=== PATIENT | female | born 1965 | race Caucasian/White ===

== ENCOUNTER 2016-07-03 21:24 | Emergency (ER) | payer MEDICAID ==
[~2016-07-03] VITALS: Ht 157.5 cm; Wt 71.0 kg
[~2016-07-03 21:24] MED LIST: BACT800T5 PO; HYDR-3535 PO; IMIT100T PO; Muscle relaxer PO; PROM25SU8 PO; SUMA25 PO
[2016-07-03 21:56] VITALS: BP 117/75; PULSE 74; RESP 16; TEMP 98.1; O2SAT 98
[2016-07-03] MEDS ORDERED: IMIT100T PO (22:08)
[2016-07-03] MEDS ORDERED: IMIT25TA PO (22:08)
--- NOTE | 2016-07-03 22:40 | PD ---
HPI . Headache Chief Complaint: Headache Time Seen by Provider: 22:34 Travel History International Travel<30 days: No Contact w/Intl Traveler<30days: No Traveled to known affect area: No History of Present Illness HPI Patient presents complaining with a migraine headache that started this morning. She describes a throbbing left-sided headache. It has been unrelieved by Excedrin. PFSH Past Medical History Arthritis: No Asthma: No Autoimmune Disease: No Heart Rhythm Problems: No Cancer: No Cardiovascular Problems: No High Cholesterol: No Chest Pain: Yes (Intermittent) Congestive Heart Failure: No COPD: No Cerebrovascular Accident: No Diminished Hearing: No Endocrine: No Gastrointestinal Disorders: Yes GERD: No Genitourinary: Yes Headaches: Yes Hiatal Hernia: Yes Hypertension: No Kidney Stones: Yes Musculoskeletal: No Neurologic: Yes Reproductive: Yes (HEAVY PERIODS) Respiratory: No Immunizations Current: Yes Migraines: Yes Myocardial Infarction: No Renal Failure: No Seizures: Yes Sleep Apnea: No Ulcer: Yes Tetanus Vaccination: < 5 Years Influenza Vaccination: No ?: Not LMP: NOW Menopausal: Yes Tubal Ligation: Yes Past Surgical History Abdominal Surgery: Yes (Gastric bypass) AICD: No Appendectomy: Yes Cardiac Surgery: No Ear Surgery: No Endocrine Surgery: No Eye Surgery: No Genitourinary Surgery: No Gynecologic Surgery: Yes (tubal ligation) Oral Surgery: No Pacemaker: No Thoracic Surgery: No Other Surgery: Yes Social History Alcohol Use: No Tobacco Use: No Substance Use: Yes (POT) Allergies-Medications (Allergen,Severity, Reaction): Coded Allergies: No Known Allergies (Verified , 07/03/16) Reported Meds & Prescriptions Reported Meds & Active Scripts Active Reported Imitrex (Sumatriptan Succinate) 100 Mg Tab 100 Mg PO BID PRN If a satisfactory response has not been obtained at 2 hours, a second dose may be administered Imitrex (Sumatriptan Succinate) 25 Mg Tab 25 Mg PO BID PRN If a satisfactory response has not been obtained at 2 hours, a second dose may be administered Review of Systems Except as stated in HPI: all other systems reviewed are Neg General / Constitutional: No: Fever, Chills HENT: Positive: Headaches Physical Exam Narrative GENERAL: Patient is lying on the stretcher with a cool washcloth across her forehead. SKIN: Warm and dry. HEAD: Atraumatic. Normocephalic. She does have some left sided scalp tenderness. EYES: Pupils equal and round. ENT: No nasal bleeding or discharge. Mucous membranes pink and moist. NECK: Trachea midline. Neck is supple. CARDIOVASCULAR: Regular rate and rhythm. RESPIRATORY: No accessory muscle use. MUSCULOSKELETAL: No obvious deformities. No edema. NEUROLOGICAL: Awake and alert. No obvious cranial nerve deficits. Motor grossly within normal limits. Normal speech. PSYCHIATRIC: Appropriate mood and affect; insight and judgment normal. Data Data Last Documented VS Vital Signs Date Time Temp Pulse Resp B/P Pulse Ox O2 Delivery O2 Flow Rate FiO2 07/03/16 22:09 07/03/16 21:56 98.1 74 16 98 Orders Iv Access Insert/Monitor (07/03/16 22:36) Sodium Chloride 0.9% Flush (Ns Flush) (07/03/16 22:45) Prochlorperazine Inj (Compazine Inj) (07/03/16 22:45) Diphenhydramine Inj (Benadryl Inj) (07/03/16 22:45) MDM Medical Decision Making Medical Screen Exam Complete: Yes Emergency Medical Condition: Yes Differential Diagnosis Differential diagnosis of headache includes but is not limited to migraine, muscle contraction headache, brain tumor, brain bleed Narrative Course Patient presents for treatment of migraine. She denies any known drug allergies. Patient refuses IV access. I will give her a shot of Toradol and a Compazine suppository. Diagnosis Primary Impression: Headache Qualified Code: G44.039 - Episodic paroxysmal hemicrania, not intractable Disposition: DISCHARGE HOME Condition: Stable Naina Pacheco MD Jul 03, 2016 22:40
[2016-07-03] MEDS ORDERED: KETOROLAC TROMETHAMINE 60 MG/2 ML (IM) VIAL IM ONE (22:45)
[2016-07-03] MEDS ORDERED: PROCHLORPERAZINE INJ 10 MG/2 ML VIAL IVP ONE (22:45)
[2016-07-03] MEDS ORDERED: PROCHLORPERAZINE 25 MG SUPP RECTAL ONE (22:45)
[2016-07-03] MEDS ORDERED: diphenhydrAMINE HCL 50 MG/ML VIAL IVP ONE (22:45)
[2016-07-03] MEDS ORDERED: SODIUM CHLORIDE 0.9% FLUSH 5 ML FLUSH IVF PRN (22:45)
[2016-07-03 22:51] VITALS: BP 127/64; PULSE 70; RESP 18; O2SAT 96
== END 2016-07-03 23:00 | disposition home or self-care (01) ==
LOC: PHEFT 21:24
DX: G43.909 Migraine, unspecified, not intractable, without status migrainosus (principal); F12.10 Cannabis abuse, uncomplicated
CPT/HCPCS: 96372; 99283; J1885

== ENCOUNTER 2016-07-04 19:35 | Emergency (ER) | payer MEDICAID ==
[~2016-07-04] VITALS: Ht 157.5 cm; Wt 71.0 kg
[~2016-07-04 19:35] MED LIST changes: -BACT800T5 PO; -HYDR-3535 PO; +IMIT25TA PO; -Muscle relaxer PO; -PROM25SU8 PO; -SUMA25 PO
[2016-07-04 19:39] VITALS: BP 146/84; PULSE 70; RESP 19; TEMP 98.3; O2SAT 98
--- NOTE | 2016-07-04 19:55 | PD ---
HPI Chief Complaint: Headache Time Seen by Provider: 19:47 Travel History International Travel<30 days: No Contact w/Intl Traveler<30days: No Traveled to known affect area: No History of Present Illness HPI This 50-year-old female is complaining of migraine headache. She has a long history of migraines. She was in the emergency department last night and got injection of Toradol and Compazine the headache did not resolve and she is continuing to have pain. She has had some vomiting. She says in the past she has Very good results with Imitrex injection and she would like to try. It is a throbbing headache behind her right eye. She is having photophobia. She does have other medical issues. She is being evaluated for irregular vaginal bleeding and is due to have surgery. She is also has a right hip problem that she will have operated on [facility] Past Medical History Arthritis: No Asthma: No Autoimmune Disease: No Heart Rhythm Problems: No Cancer: No Cardiovascular Problems: No High Cholesterol: No Chest Pain: Yes (Intermittent) Congestive Heart Failure: No COPD: No Cerebrovascular Accident: No Diminished Hearing: No Endocrine: No Gastrointestinal Disorders: Yes GERD: No Genitourinary: Yes Headaches: Yes Hiatal Hernia: Yes Hypertension: No Kidney Stones: Yes Musculoskeletal: No Neurologic: Yes Reproductive: Yes (HEAVY PERIODS) Respiratory: No Immunizations Current: Yes Migraines: Yes Myocardial Infarction: No Renal Failure: No Seizures: Yes Sleep Apnea: No Ulcer: Yes ?: Not Menopausal: Yes Tubal Ligation: Yes Past Surgical History Abdominal Surgery: Yes (Gastric bypass) AICD: No Appendectomy: Yes Cardiac Surgery: No Ear Surgery: No Endocrine Surgery: No Eye Surgery: No Genitourinary Surgery: No Gynecologic Surgery: Yes (tubal ligation) Oral Surgery: No Pacemaker: No Thoracic Surgery: No Other Surgery: Yes Social History Alcohol Use: No Tobacco Use: No Substance Use: Yes (POT) Allergies-Medications (Allergen,Severity, Reaction): Coded Allergies: Zofran (Verified Adverse Reaction, Mild, RESTLESS , 07/04/16) Reported Meds & Prescriptions Reported Meds & Active Scripts Active Reported Imitrex (Sumatriptan Succinate) 100 Mg Tab 100 Mg PO BID PRN If a satisfactory response has not been obtained at 2 hours, a second dose may be administered Imitrex (Sumatriptan Succinate) 25 Mg Tab 25 Mg PO BID PRN If a satisfactory response has not been obtained at 2 hours, a second dose may be administered Review of Systems General / Constitutional: No: Fever, Chills Eyes: Positive: Photophobia, No: Diploplia HENT: No: Headaches, Vertigo Cardiovascular: No: Chest Pain or Discomfort, Palpitations Respiratory: No: Cough, Shortness of Breath Gastrointestinal: Positive: Nausea, Vomiting Genitourinary: No: Urgency, Frequency Musculoskeletal: No: Myalgias Neurologic: No: Weakness Hematologic/Lymphatic: No: Easy Bruising Physical Exam Narrative GENERAL: Well-developed female SKIN: Warm and dry. HEAD: Atraumatic. Normocephalic. EYES: Pupils equal and round. No scleral icterus. No injection or drainage. ENT: No nasal bleeding or discharge. Mucous membranes pink and moist. NECK: Trachea midline. No JVD. CARDIOVASCULAR: Regular rate and rhythm. No murmur appreciated. RESPIRATORY: No accessory muscle use. Clear to auscultation. Breath sounds equal bilaterally. GASTROINTESTINAL: Abdomen soft, non-tender, nondistended. Hepatic and splenic margins not palpable. MUSCULOSKELETAL: No obvious deformities. No clubbing. No cyanosis. No edema. NEUROLOGICAL: Awake and alert. No obvious cranial nerve deficits. Motor grossly within normal limits. Normal speech. PSYCHIATRIC: Appropriate mood and affect; insight and judgment normal. Data Data Last Documented VS Vital Signs Date Time Temp Pulse Resp B/P Pulse Ox O2 Delivery O2 Flow Rate FiO2 07/04/16 20:54 57 16 133/73 99 Room Air 07/04/16 19:39 98.3 Orders Sumatriptan Inj (Imitrex Inj) (07/04/16 20:00) [facility] Medical Decision Making Medical Screen Exam Complete: Yes Emergency Medical Condition: Yes Medical Record Reviewed: Yes Differential Diagnosis Differential includes migraine headache, tension headache Narrative Course Patient is very particular about treatment she wants. She does not want IV established. She says she does not want narcotics. She says that Imitrex has helped with the past. I gave 6 mg of Imitrex and she had some improvement. She is having residual headache Toradol. Diagnosis Primary Impression: Migraine headache Qualified Code: G43.909 - Migraine without status migrainosus, not intractable , unspecified migraine type Disposition: DISCHARGE HOME Condition: Stable Johnson Dejesus MD Jul 04, 2016 19:55
[2016-07-04] MEDS ORDERED: SUMAtriptan INJ 6 MG/0.5 ML VIAL SQ ONE (20:00)
[2016-07-04 20:54] VITALS: BP 133/73; PULSE 57; RESP 16; O2SAT 99
[2016-07-04] MEDS ORDERED: KETOROLAC TROMETHAMINE 60 MG/2 ML (IM) VIAL IM ONE (21:15)
== END 2016-07-04 22:16 | disposition home or self-care (01) ==
LOC: PHED 19:35
DX: G43.909 Migraine, unspecified, not intractable, without status migrainosus (principal); R11.10 Vomiting, unspecified; N93.9 Abnormal uterine and vaginal bleeding, unspecified; Z87.19 Personal history of other diseases of the digestive system; Z87.448 Personal history of other diseases of urinary system; Z87.442 Personal history of urinary calculi; Z86.69 Personal history of other diseases of the nervous system and sense organs; Z87.42 Personal history of other diseases of the female genital tract
CPT/HCPCS: 96372; 99283; J1885; J3030

== ENCOUNTER 2016-07-12 09:26 | Emergency (ER) | payer MEDICAID ==
[~2016-07-12] VITALS: Ht 157.5 cm; Wt 71.0 kg
[2016-07-12 09:31] VITALS: BP 143/83; PULSE 73; RESP 16; TEMP 98.2; O2SAT 100
[2016-07-12] MEDS ORDERED: SUMAtriptan INJ 6 MG/0.5 ML VIAL SQ ONE (10:30)
[2016-07-12] MEDS ORDERED: IMIT100T PO (11:07)
--- NOTE | 2016-07-12 11:07 | PD ---
HPI Chief Complaint: Headache Time Seen by Provider: 10:09 Travel History International Travel<30 days: No Contact w/Intl Traveler<30days: No Traveled to known affect area: No History of Present Illness HPI Patient 51-year-old female presents today with a typical migraine the right side of her head. Patient states that she's been having these on and off for some time. States she also has a history of vaginal bleeding for the past 9 months and has history of fibroids was recommended to have a hysterectomy but her providers have left practice and she is trying to get established with their physicians. She has an appointment with a new PCP at the end of July. Patient admits that she is here because her migraine is no worse than normal but she has run out of her Imitrex and requests a prescription to help get her to her next appointment. States there is nothing alarming or concerning about this migraine and respect her previous migraines. She also denies any hypovolemic symptoms such as dizziness or vertigo or presyncopal symptoms. PFSH Past Medical History Arthritis: No Asthma: No Autoimmune Disease: No Heart Rhythm Problems: No Cancer: No Cardiovascular Problems: No High Cholesterol: Yes Chest Pain: Yes (Intermittent) Congestive Heart Failure: No COPD: No Cerebrovascular Accident: No Diminished Hearing: No Endocrine: No Gastrointestinal Disorders: Yes GERD: Yes Genitourinary: Yes Headaches: Yes Hiatal Hernia: Yes Hypertension: No Kidney Stones: Yes Musculoskeletal: No Neurologic: Yes Reproductive: Yes (HEAVY PERIODS, fibroids) Respiratory: No Immunizations Current: Yes Migraines: Yes Myocardial Infarction: No Renal Failure: No Seizures: Yes Sleep Apnea: No Ulcer: Yes Tetanus Vaccination: < 5 Years Influenza Vaccination: No ?: Not LMP: 07/10/16 Menopausal: Yes : 5 Para: 5 Ovarian Cysts: Yes Tubal Ligation: Yes Past Surgical History Abdominal Surgery: Yes (Gastric bypass) AICD: No Appendectomy: Yes Cardiac Surgery: No Section: Yes (x1) Ear Surgery: No Endocrine Surgery: No Eye Surgery: No Genitourinary Surgery: No Gynecologic Surgery: Yes (tubal ligation) Oral Surgery: No Pacemaker: No Thoracic Surgery: No Other Surgery: Yes (GASTRIC BYPASS) Social History Alcohol Use: No Tobacco Use: No Substance Use: No Allergies-Medications (Allergen,Severity, Reaction): Coded Allergies: Zofran (Verified Adverse Reaction, Mild, RESTLESS , 07/12/16) Reported Meds & Prescriptions Reported Meds & Active Scripts Active Imitrex (Sumatriptan Succinate) 100 Mg Tab 100 Mg PO ONCE PRN If a satisfactory response has not been obtained at 2 hours, a second dose may be administered Review of Systems Except as stated in HPI: all other systems reviewed are Neg Physical Exam Narrative GENERAL: WD/WN in nad. Appears well. SKIN: Warm and dry. HEAD: Atraumatic. Normocephalic. EYES: Pupils equal and round. No scleral icterus. No injection or drainage. ENT: No nasal bleeding or discharge. Mucous membranes pink and moist. NECK: Trachea midline. No JVD. CARDIOVASCULAR: Regular rate and rhythm. RESPIRATORY: No accessory muscle use. Clear to auscultation. Breath sounds equal bilaterally. GASTROINTESTINAL: Abdomen soft, non-tender, nondistended. Hepatic and splenic margins not palpable. MUSCULOSKELETAL: Extremities without clubbing, cyanosis, or edema. No obvious deformities. NEUROLOGICAL: Awake and alert. No obvious cranial nerve deficits. Motor grossly within normal limits. Five out of 5 muscle strength in the arms and legs. Normal speech. PSYCHIATRIC: Appropriate mood and affect; insight and judgment normal. Data Data Last Documented VS Vital Signs Date Time Temp Pulse Resp B/P Pulse Ox O2 Delivery O2 Flow Rate FiO2 07/12/16 11:30 70 16 142/75 99 07/12/16 10:20 Room Air 07/12/16 09:31 98.2 Orders Sumatriptan Inj (Imitrex Inj) (07/12/16 10:30) MDM Medical Decision Making Medical Screen Exam Complete: Yes Emergency Medical Condition: Yes Differential Diagnosis Recurrent migraine, cluster, tension headache. Narrative Course Patient appears well and in nad. No nuchal s/s. No red flag s/s for more malignant cause of headache. Imitrex given IM and headache resolved. Discussed need for follow up with PCP and return to ed criteria. Diagnosis Primary Impression: Migraine headache Qualified Code: G43.909 - Migraine without status migrainosus, not intractable , unspecified migraine type Med/Other Pt SpecificInfo: Prescription(s) given Scripts Sumatriptan (Imitrex)100 Mg [id number] Mg PO ONCE PRN (MIGRAINE HEADACHE) #15 TAB Ref 0 If a satisfactory response has not been obtained at 2 hours, a second dose may be administered Prov:Thom Willson MD 07/12/16 Disposition: 01 DISCHARGE HOME Condition: Stable Thom Willson MD Jul 12, 2016 11:07
[2016-07-12 11:30] VITALS: BP 142/75; RESP 16
== END 2016-07-12 11:32 | disposition home or self-care (01) ==
LOC: PHED 09:26
DX: G43.909 Migraine, unspecified, not intractable, without status migrainosus (principal); N93.9 Abnormal uterine and vaginal bleeding, unspecified; E78.00 Pure hypercholesterolemia, unspecified; Z87.42 Personal history of other diseases of the female genital tract; Z87.19 Personal history of other diseases of the digestive system; Z87.448 Personal history of other diseases of urinary system; Z87.442 Personal history of urinary calculi; Z86.69 Personal history of other diseases of the nervous system and sense organs
CPT/HCPCS: 96372; 99283; J3030

== ENCOUNTER 2016-10-28 07:49 | Emergency (ER) | payer MEDICAID ==
[~2016-10-28] VITALS: Ht 154.9 cm; Wt 71.1 kg
[~2016-10-28 07:49] MED LIST changes: -IMIT25TA PO
[2016-10-28 07:52] VITALS: BP 143/93; PULSE 74; RESP 16; TEMP 97.4; O2SAT 98
[2016-10-28] MEDS ORDERED: IMIT100T PO ×2 (08:01→09:06)
--- NOTE | 2016-10-28 08:02 | PD ---
HPI Chief Complaint: Headache Time Seen by Provider: 08:02 Travel History International Travel<30 days: No Contact w/Intl Traveler<30days: No Traveled to known affect area: No History of Present Illness HPI 51-year-old female came to the emergency room with history of headache that started yesterday. Patient has history of migraines. She usually uses Imitrex but has been out of her Imitrex. She has been in this emergency room multiple times for headache as per her own admission. This headache is no different than her usual. She is extremely sensitive to the light and that noises since it makes her headache worse. Some nausea associated but no vomiting. Vital signs were within acceptable limits. No history of fever or chills. No history of neck stiffness. [facility] Past Medical History Narrative Medical List of her past medical, surgical, social and family history was reviewed from the nursing note. Arthritis: No Asthma: No Autoimmune Disease: No Heart Rhythm Problems: No Cancer: No Cardiovascular Problems: No High Cholesterol: Yes Chest Pain: Yes (Intermittent) Congestive Heart Failure: No COPD: No Cerebrovascular Accident: No Diabetes: No Diminished Hearing: No Endocrine: No Gastrointestinal Disorders: No GERD: Yes Genitourinary: Yes Headaches: Yes Hiatal Hernia: Yes Hypertension: No Kidney Stones: Yes Musculoskeletal: No Neurologic: Yes Reproductive: Yes (HEAVY PERIODS, fibroids) Respiratory: No Immunizations Current: Yes Migraines: Yes Myocardial Infarction: No Renal Failure: No Seizures: Yes Sleep Apnea: No Ulcer: Yes Tetanus Vaccination: Unknown ?: Not Menopausal: Yes : 5 Para: 5 Ovarian Cysts: Yes Tubal Ligation: Yes Past Surgical History Abdominal Surgery: Yes (Gastric bypass) AICD: No Appendectomy: Yes Cardiac Surgery: No Section: Yes (x1) Ear Surgery: No Endocrine Surgery: No Eye Surgery: No Genitourinary Surgery: No Gynecologic Surgery: Yes (tubal ligation) Neurologic Surgery: No Oral Surgery: No Pacemaker: No Thoracic Surgery: No Other Surgery: Yes (GASTRIC BYPASS) Social History Alcohol Use: No Tobacco Use: No Substance Use: No Allergies-Medications (Allergen,Severity, Reaction): Coded Allergies: Zofran (Verified Adverse Reaction, Mild, RESTLESS , 10/28/16) Comments List of her allergies reviewed from the nursing note. Reported Meds & Prescriptions Reported Meds & Active Scripts Active Imitrex (Sumatriptan Succinate) 100 Mg Tab 100 Mg PO ONCE PRN If a satisfactory response has not been obtained at 2 hours, a second dose may be administered Reported Imitrex (Sumatriptan Succinate) 100 Mg Tab 100 Mg PO ONCE PRN If a satisfactory response has not been obtained at 2 hours, a second dose may be administered Narrative Medication List of her home medications reviewed from the nursing note. Review of Systems Except as stated in HPI: all other systems reviewed are Neg Physical Exam Narrative GENERAL: Awake, alert, moderate distress SKIN: Focused skin assessment warm/dry. HEAD: Atraumatic. Normocephalic. EYES: Pupils equal and round. No scleral icterus. No injection or drainage. ENT: No nasal bleeding or discharge. Mucous membranes pink and moist. NECK: Trachea midline. No JVD. CARDIOVASCULAR: Regular rate and rhythm. No murmur appreciated. RESPIRATORY: No accessory muscle use. Clear to auscultation. Breath sounds equal bilaterally. GASTROINTESTINAL: Abdomen soft, non-tender, nondistended. Hepatic and splenic margins not palpable. MUSCULOSKELETAL: No obvious deformities. No clubbing. No cyanosis. No edema. NEUROLOGICAL: Awake and alert. No obvious cranial nerve deficits. Motor grossly within normal limits. Normal speech. PSYCHIATRIC: Appropriate mood and affect; insight and judgment normal. Data Data Last Documented VS Vital Signs Date Time Temp Pulse Resp B/P Pulse Ox O2 Delivery O2 Flow Rate FiO2 10/28/16 09:31 64 16 128/74 99 10/28/16 07:56 Room Air 10/28/16 07:52 97.4 Orders Prochlorperazine Inj (Compazine Inj) (10/28/16 08:15) Sumatriptan Inj (Imitrex Inj) (10/28/16 09:15) [facility] Medical Decision Making Medical Screen Exam Complete: Yes Emergency Medical Condition: Yes Medical Record Reviewed: Yes Differential Diagnosis Status migrainous, cluster headache, headache NOS Narrative Course 8:49 AM patient refused to get an IV and IV fluid. I have ordered IM Compazine which she has received. I'll reassess her in a bit. 9:03 AM I just reassessed the patient. It's almost been an hour since she received her IM Compazine. She says her headache is only a little bit better. She has asked to get a shot of Imitrex since she says every time she gets that in the past it has worked like magic. I have ordered the Imitrex in spite of the fact that the headache has been there for 6 hours now. Patient wants to get a prescription for Imitrex when she goes home. I will discharge her home. Procedures EKG Prior to Arrival: No Diagnosis Primary Impression: Status migrainosus Referrals: Primary Care Physician 2 days Additional Instructions: Please return to the ER if the condition worsens or any other new concerns. Otherwise follow-up with your primary care. Get the medication prescription filled and take it just when the headache starts in order to get the best affect. Med/Other Pt SpecificInfo: Prescription(s) given Scripts Sumatriptan (Imitrex)100 Mg [id number] Mg PO ONCE PRN (MIGRAINE HEADACHE) #15 TAB Ref 0 If a satisfactory response has not been obtained at 2 hours, a second dose may be administered Prov:Mo Pedraza MD 10/28/16 Disposition: 01 DISCHARGE HOME Condition: Stable Mo Pedraza MD October 28, 2016 08:02
[2016-10-28] MEDS ORDERED: PROCHLORPERAZINE INJ 10 MG/2 ML VIAL IM ONE (08:15)
[2016-10-28] MEDS ORDERED: SUMAtriptan INJ 6 MG/0.5 ML VIAL SQ ONE (09:15)
[2016-10-28 09:31] VITALS: BP 128/74
== END 2016-10-28 09:37 | disposition home or self-care (01) ==
LOC: PHED 07:49
DX: G43.901 Migraine, unspecified, not intractable, with status migrainosus (principal); I10 Essential (primary) hypertension
CPT/HCPCS: 96372; 99283; J0780; J3030

== ENCOUNTER 2017-08-12 09:48 | Emergency (ER) | payer MEDICAID ==
[~2017-08-12] VITALS: Ht 160 cm; Wt 74.0 kg
[2017-08-12 09:53] VITALS: BP 176/79; PULSE 98; RESP 16; TEMP 98; O2SAT 96
[2017-08-12] MEDS ORDERED: SODIUM CHLOR 0.9% 1000 ML INJ 1,000 ML IV ONE (10:03)
[2017-08-12 10:13] VITALS: O2SAT 98
[2017-08-12] MEDS ORDERED: PROCHLORPERAZINE INJ 10 MG/2 ML VIAL IVP ONE (10:15)
[2017-08-12] MEDS ORDERED: SODIUM CHLORIDE 0.9% FLUSH 10 ML FLUSH IVF PRN (10:15)
[2017-08-12] MEDS ORDERED: diphenhydrAMINE HCL 50 MG/ML VIAL IVP ONE (10:15)
[2017-08-12 10:19] LABS: AUTOMATED NEUTROPHIL # 6.7 TH/MM3 (1.8-7.7); BASOPHIL % 0.2 % (0.0-2.0); EOSINOPHIL # 0.1 TH/MM3 (0-0.4); EOSINOPHIL % 0.9 % (0.0-4.0); HEMATOCRIT 36.1 % (35.0-46.0); LYMPH % 13.9 % (9.0-44.0); LYMPHOCYTE # 1.2 TH/MM3 (1.0-4.8); MEAN CELL VOLUME 79.8 FL (80.0-100.0); MEAN CORPUSCULAR HEMOGLOBIN 26.4 PG (27.0-34.0); MEAN CORPUSCULAR HGB CONC 33.1 % (32.0-36.0); MEAN PLATELET VOLUME 8.5 FL (7.0-11.0); MONO % 5.5 % (0.0-8.0); MONOCYTE # 0.5 TH/MM3 (0-0.9); NEUT % 79.5 % (16.0-70.0); PLATELET COUNT 283 TH/MM3 (150-450); RED BLOOD COUNT 4.53 MIL/MM3 (4.00-5.30); RED CELL DISTRIBUTION WIDTH 16.4 % (11.6-17.2); WHITE BLOOD COUNT 8.5 TH/MM3 (4.0-11.0)
[2017-08-12 10:34] LABS: CHLORIDE 109 MEQ/L (98-107); SODIUM (NA) 139 MEQ/L (136-145)
--- NOTE | 2017-08-12 10:35 | RADRPT ---
EXAM DATE/TIME: 08/12/2017 10:26 [place] COMPARISON: CT BRAIN W/O CONTRAST, June 01, 2015, 1:57. INDICATIONS : Cephalgia. RADIATION DOSE: 55.29 CTDIvol (mGy) MEDICAL HISTORY : Seizures. Migraines. SURGICAL HISTORY : Appendectomy. Tubal ligation.Gastric bypass. ENCOUNTER: Initial ACUITY: 1 day PAIN SCALE: 5/10 LOCATION: cranial TECHNIQUE: Multiple contiguous axial images were obtained of the head. Using automated exposure control and adj ustment of the mA and/or kV according to patient size, radiation dose was kept as low as reasonably a chievable to obtain optimal diagnostic quality images. DICOM format image data is available electro nically for review and comparison. FINDINGS: CEREBRUM: The ventricles are normal for age. No evidence of midline shift, mass lesion, hemorrhage or acute in farction. No extra-axial fluid collections are seen. POSTERIOR FOSSA: The cerebellum and brainstem are intact. The 4th ventricle is midline. The cerebellopontine angle i s unremarkable. EXTRACRANIAL: The visualized portion of the orbits is intact. SKULL: The calvaria is intact. No evidence of skull fracture. CONCLUSION: Normal examination. Omar Leggett MD on August 12, 2017 at 10:34 Board Certified Radiologist. This report was verified electronically.
[2017-08-12 10:37] LABS: INTERNATIONAL NORMALIZED RATIO 1.1 RATIO; PROTHROMBIN TIME - PATIENT 11.6 SEC (9.8-11.6)
[2017-08-12 10:39] LABS: BICARBONATE 21.6 MEQ/L (21.0-32.0); BLOOD UREA NITROGEN 17 MG/DL (7-18); GLUCOSE,RANDOM 103 MG/DL (74-106)
[2017-08-12 10:42] LABS: ALT (GPT) 13 U/L (10-53); AST (GOT) 16 U/L (15-37); CREATININE 0.92 MG/DL (0.50-1.00); GLOMERULAR FILTRATION RATE 65 ML/MIN (>89)
[2017-08-12 10:43] LABS: TOTAL BILIRUBIN ADULT 0.3 MG/DL (0.2-1.0)
[2017-08-12 10:45] LABS: ALKALINE PHOSPHATASE 73 U/L (45-117)
[2017-08-12 11:23] VITALS: BP 115/66; PULSE 71; RESP 16; O2SAT 97
--- NOTE | 2017-08-12 11:47 | PD ---
HPI Chief Complaint: Headache Time Seen by Provider: 09:56 Travel History International Travel<30 days: No Contact w/Intl Traveler<30days: No Traveled to known affect area: No History of Present Illness HPI This is a 52-year-old female with a history of migraines who presents for headache and change in hearing. She states that yesterday morning, she had gradual onset of right frontal headache. She states that it feels like her prior migraines. It came on gradually and did not reach maximum intensity rapidly. This is not the worst headache of her life. No associated focal weakness, numbness, tingling. No change in vision. She states that it feels like her hearing is muffled. She can hear but it feels like voices are far away. It seems to be symmetric in each ear. She states that it feels like her ears "need to pop." She denies recent fever, chills, cough, congestion, vomiting, diarrhea. No rash, neck pain or stiffness. No ear pain. Symptoms are mild in severity. Onset gradual. No alleviating or aggravating factors. She took 2 Excedrin this morning. PFSH Past Medical History Arthritis: No Asthma: No Autoimmune Disease: No Heart Rhythm Problems: No Cancer: No Cardiovascular Problems: No High Cholesterol: Yes Chest Pain: Yes (Intermittent) Congestive Heart Failure: No COPD: No Cerebrovascular Accident: No Diabetes: No Diminished Hearing: No Endocrine: No Gastrointestinal Disorders: No GERD: Yes Genitourinary: Yes Headaches: Yes Hiatal Hernia: Yes Hypertension: No Kidney Stones: Yes Musculoskeletal: No Neurologic: Yes Reproductive: Yes (HEAVY PERIODS, fibroids) Respiratory: No Immunizations Current: Yes Migraines: Yes Myocardial Infarction: No Renal Failure: No Seizures: Yes Sleep Apnea: No Ulcer: Yes Tetanus Vaccination: Unknown ?: Not Menopausal: Yes : 5 Para: 5 Ovarian Cysts: Yes Tubal Ligation: Yes Past Surgical History Abdominal Surgery: Yes (Gastric bypass) AICD: No Appendectomy: Yes Cardiac Surgery: No Section: Yes (x1) Ear Surgery: No Endocrine Surgery: No Eye Surgery: No Genitourinary Surgery: No Gynecologic Surgery: Yes (tubal ligation) Neurologic Surgery: No Oral Surgery: No Pacemaker: No Thoracic Surgery: No Other Surgery: Yes (GASTRIC BYPASS) Social History Alcohol Use: No Tobacco Use: No Substance Use: No Allergies-Medications (Allergen,Severity, Reaction): Coded Allergies: ondansetron (Unverified Adverse Reaction, Mild, RESTLESS , 08/12/17) Reported Meds & Prescriptions Reported Meds & Active Scripts Active Prochlorperazine Maleate 10 Mg Tab 10 Mg PO Q6H PRN TAKE WITH BENADRYL Reported Imitrex (Sumatriptan Succinate) 100 Mg Tab 100 Mg PO ONCE PRN If a satisfactory response has not been obtained at 2 hours, a second dose may be administered Review of Systems Except as stated in HPI: all other systems reviewed are Neg Physical Exam Narrative GENERAL: Alert, well nourished, well appearing patient resting on the bed in no acute distress. Vital Signs reviewed SKIN: Focused skin assessment warm/dry. HEAD: Atraumatic. Normocephalic. EYES: Pupils equal and round. No scleral icterus. No injection or drainage. No photophobia ENT: No nasal bleeding or discharge. Mucous membranes pink and moist. TMs are clear bilaterally. No tenderness over the mastoids. Posterior oropharynx with no erythema, edema, exudate. Uvula is midline. Hearing does not lateralize with humming. NECK: Trachea midline. No JVD. Spontaneous, painless full range of motion with no meningismus CARDIOVASCULAR: Regular rate and rhythm. No murmur appreciated. Extremities warm and well perfused with bounding peripheral pulses RESPIRATORY: No accessory muscle use. Clear to auscultation. Breath sounds equal bilaterally. Breathing easily and speaking in full sentences GASTROINTESTINAL: Abdomen soft, non-tender, nondistended. Normal bowel sounds. No rigid, rebound, guarding MUSCULOSKELETAL: No obvious deformities. No clubbing. No cyanosis. No edema. Compartments are soft NEUROLOGICAL: Awake and alert. No obvious cranial nerve deficits other than subjectively diminished hearing symmetric bilaterally. Patient is able to converse without difficulty in normal conversational tone even when I am facing away from her she can hear me and answer appropriately.. Motor grossly within normal limits. Normal speech. Sensation intact. Normal gait. No pronator drift. Normal finger to nose PSYCHIATRIC: Appropriate mood and affect; insight and judgment normal. Data Data Last Documented VS Vital Signs Date Time Temp Pulse Resp B/P (MAP) Pulse Ox O2 Delivery O2 Flow Rate FiO2 08/12/17 11:23 71 16 115/66 (82) 97 Room Air 08/12/17 09:53 98.0 Orders Orders Complete Blood Count With Diff (08/12/17 10:03) Comprehensive Metabolic Panel (08/12/17 10:03) Prothrombin Time / Inr (Pt) (08/12/17 10:03) Act Partial Throm Time (Ptt) (08/12/17 10:03) Ct Brain W/O Iv Contrast(Rout) (08/12/17 10:03) Ecg Monitoring (08/12/17 10:03) Iv Access Insert/Monitor (08/12/17 10:03) Oximetry (08/12/17 10:03) Sodium Chloride 0.9% Flush (Ns Flush) (08/12/17 10:15) Sodium Chlor 0.9% 1000 Ml Inj (Ns 1000 M (08/12/17 10:03) Prochlorperazine Inj (Compazine Inj) (08/12/17 10:15) Diphenhydramine Inj (Benadryl Inj) (08/12/17 10:15) Labs Laboratory Tests Test 08/12/17 10:13 White Blood Count 8.5 TH/MM3 Red Blood Count 4.53 MIL/MM3 Hemoglobin 12.0 GM/DL Hematocrit 36.1 % Mean Corpuscular Volume 79.8 FL Mean Corpuscular Hemoglobin 26.4 PG Mean Corpuscular Hemoglobin Concent 33.1 % Red Cell Distribution Width 16.4 % Platelet Count 283 TH/MM3 Mean Platelet Volume 8.5 FL Neutrophils (%) (Auto) 79.5 % Lymphocytes (%) (Auto) 13.9 % Monocytes (%) (Auto) 5.5 % Eosinophils (%) (Auto) 0.9 % Basophils (%) (Auto) 0.2 % Neutrophils # (Auto) 6.7 TH/MM3 Lymphocytes # (Auto) 1.2 TH/MM3 Monocytes # (Auto) 0.5 TH/MM3 Eosinophils # (Auto) 0.1 TH/MM3 Basophils # (Auto) 0.0 TH/MM3 CBC Comment DIFF FINAL Differential Comment Prothrombin Time 11.6 SEC Prothromb Time International Ratio 1.1 RATIO Activated Partial Thromboplast Time 25.4 SEC Blood Urea Nitrogen 17 MG/DL Creatinine 0.92 MG/DL Random Glucose 103 MG/DL Total Protein 8.0 GM/DL Albumin 4.0 GM/DL Calcium Level 8.0 MG/DL Alkaline Phosphatase 73 U/L Aspartate Amino Transf (AST/SGOT) 16 U/L Alanine Aminotransferase (ALT/SGPT) 13 U/L Total Bilirubin 0.3 MG/DL Sodium Level 139 MEQ/L Potassium Level 3.2 MEQ/L Chloride Level 109 MEQ/L Carbon Dioxide Level 21.6 MEQ/L Anion Gap 8 MEQ/L Estimat Glomerular Filtration Rate 65 ML/MIN MDM Medical Decision Making Medical Screen Exam Complete: Yes Emergency Medical Condition: Yes Medical Record Reviewed: Yes Interpretation(s) Laboratory Tests Test 08/12/17 10:13 White Blood Count 8.5 TH/MM3 Red Blood Count 4.53 MIL/MM3 Hemoglobin 12.0 GM/DL Hematocrit 36.1 % Mean Corpuscular Volume 79.8 FL Mean Corpuscular Hemoglobin 26.4 PG Mean Corpuscular Hemoglobin Concent 33.1 % Red Cell Distribution Width 16.4 % Platelet Count 283 TH/MM3 Mean Platelet Volume 8.5 FL Neutrophils (%) (Auto) 79.5 % Lymphocytes (%) (Auto) 13.9 % Monocytes (%) (Auto) 5.5 % Eosinophils (%) (Auto) 0.9 % Basophils (%) (Auto) 0.2 % Neutrophils # (Auto) 6.7 TH/MM3 Lymphocytes # (Auto) 1.2 TH/MM3 Monocytes # (Auto) 0.5 TH/MM3 Eosinophils # (Auto) 0.1 TH/MM3 Basophils # (Auto) 0.0 TH/MM3 CBC Comment DIFF FINAL Differential Comment Prothrombin Time 11.6 SEC Prothromb Time International Ratio 1.1 RATIO Activated Partial Thromboplast Time 25.4 SEC Blood Urea Nitrogen 17 MG/DL Creatinine 0.92 MG/DL Random Glucose 103 MG/DL Total Protein 8.0 GM/DL Albumin 4.0 GM/DL Calcium Level 8.0 MG/DL Alkaline Phosphatase 73 U/L Aspartate Amino Transf (AST/SGOT) 16 U/L Alanine Aminotransferase (ALT/SGPT) 13 U/L Total Bilirubin 0.3 MG/DL Sodium Level 139 MEQ/L Potassium Level 3.2 MEQ/L Chloride Level 109 MEQ/L Carbon Dioxide Level 21.6 MEQ/L Anion Gap 8 MEQ/L Estimat Glomerular Filtration Rate 65 ML/MIN Last [address] 08/12/17 1003 Signed Impressions: Service Date/Time: [place], August 12, 2017 10:26 - CONCLUSION: Normal examination. Omar Leggett MD Differential Diagnosis Complex migraine, cerumen impaction, hearing loss, intracranial mass, sinus congestion, CN deficit Narrative Course IV access was established. Labs, imaging were performed. Patient was given IV fluids, Benadryl and Compazine with excellent result. Upon reexamination at 11: 30 AM: She is resting comfortably on the bed. She states that her headache is markedly improved and her hearing appears to be improved as well. I spoke with Dr. Dupree regarding the patient's symptoms, history, lab and imaging findings. She states that patient can be discharged with continued outpatient workup. I reviewed this plan with the patient who is very eager to be discharged. She states that she is feeling much better. She does not want further testing in the emergency department. Patient understands the importance of close outpatient follow-up. She understands she may require further testing and treatment as an outpatient. She understands strict return indications. She is comfortable with this plan and eager to go home. Diagnosis Primary Impression: Migraine headache Qualified Codes: G43.009 - Migraine without aura, not intractable, without status migrainosus Referrals: Nava Dupree MD Primary Care Physician 3 days Patient Instructions: General Instructions, Migraine Headache (DC) Additional Instructions: Use Compazine with Benadryl as needed for headache. Do not take aspirin containing medications for 2 days. Follow up with primary physician in 3 days for recheck. Call today to make an appointment. Follow-up with neurologist as needed. You may require further testing and treatment as an outpatient. Med/Other Pt SpecificInfo: Prescription(s) given Scripts Prochlorperazine Maleate (Prochlorperazine Maleate) 10 Mg Tab 10 MG PO Q6H Y for MIGRAINE HEADACHE, #12 TAB 0 Refills TAKE WITH BENADRYL Prov: Tali Michel MD 08/12/17 Disposition: 01 DISCHARGE HOME Condition: Stable Tali Michel MD Aug 12, 2017 11:47
[2017-08-12] MEDS ORDERED: PROC10TA PO (12:56)
[2017-08-12 13:15] VITALS: BP 119/64
== END 2017-08-12 13:18 ==
LOC: PHED 09:48
DX: G43.009 Migraine without aura, not intractable, without status migrainosus (principal)
CPT/HCPCS: 70450; 80053; 85025; 85610; 85730; 96361; 96374; 96375; 99284; J0780; J1200; J7030

== ENCOUNTER 2017-12-25 00:06 | Inpatient (IN) ==
[2017-12-25 01:38] LABS: Bilirubin,Urine Negative (Negative); Clarity,Urine Cloudy (Clear); Color,Urine Yellow (Yellw/Straw); Glucose,Urine (UA) Negative (Negative); Leukocyte Esterase,Urine Moderate (Negative); Nitrite,Urine Negative (Negative); PH,Urine 6.5 (5.0-8.5)
[2017-12-25 01:43] LABS: WBC,Urine 51-189 /hpf (0-5)
[2017-12-25 01:44] LABS: Bacteria,Urine Moderate /hpf; Squamous Epithelial Cell,Urine 0-5 /hpf (0-5)
[2017-12-25] MEDS ORDERED: Ketorolac Inj 30 MG/ML (IVP) Vial IV.PUSH ONE (02:28)
[2017-12-25] MEDS ORDERED: Sod Chloride 0.9% Inj 1,000 ML IV.SIG ONE ×2 (02:28→02:31)
[2017-12-25] MEDS ORDERED: Acetaminophen 500 MG Tablet PO ONE (02:28)
--- NOTE | 2017-12-25 02:37 | ED ---
HPI General Chief complaint: Headache Stated complaint: Migraine x 1p today Time Seen by Provider: 12/25/17 02:27 History of Present Illness HPI narrative: 52-year-old female presents to the emergency department for complaint of headache. Patient has history of migraines. Patient states her typical migraine began at 1 PM today. Patient states she usually uses Imitrex but without pemetrexed took Tylenol with minimal effect. Patient states she took a nap and when she awakened she still had her headaches decided to come to the emergency room for evaluation. No visual disturbance no altered mentation no upper extremity lower extremity numbness tingling or weakness no chest pain no shortness of breath no nausea no vomiting no generalized weakness and states no other complaints. Upon arrival to the emergency department patient was noted to have fever and since that time she has felt very flushed hot and states she just cannot get comfortable and feels very agitated. Patient did not take any medications prior to arrival to the emergency department reportedly. Patient states she cannot get cool and then she becomes hot. Patient states she has had no visual disturbance no sore throat no sinus pressure drainage no earache no neck pain no neck stiffness no chest pain no pleuritic chest pain no shortness of breath no wheezing no cough no congestion no nausea no vomiting no abdominal pain no diarrhea no dysuria frequency urgency no flank pain no dysuria no vaginal discharge and is currently menstruating. Patient does not use tampons. Patient's had no skin rash joint pain or swelling. No myalgias or arthralgias. Related Data Home Medications Medication Instructions Recorded Confirmed acetaminophen [Tylenol] 650 mg PO Q4H PRN 12/25/17 12/25/17 Previous Rx's Medication Instructions Recorded Imitrex 100 mg PO 2XWEEK PRN #10 tab 12/26/17 levofloxacin [Levaquin] 500 mg PO DAILY #1 tab 12/26/17 Allergies Allergy/AdvReac Type Severity Reaction Status Date / Time ondansetron AdvReac Mild RESTLESS Verified 12/25/17 00:55 Review of Systems Except as stated in HPI: all other systems reviewed are negative [facility] Medical History Medical History Migraine (Acute) Uterine fibroid (Acute) Surgical History Surgical History H/O gastric bypass (Acute) Hx of appendectomy (Acute) Family History Family History Other No history of heart disease Social History Social History Substance History: Active Abuse Second Hand Smoke Exposure: No Smoking Status: Former smoker Tobacco Type: Cigarettes How Often Do You Have a Drink Containing Alcohol: Never Recent Out of Country Travel within the Last 8 Weeks: No Substance Abuse Detail Marijuana: Substance Use Status: Active Route Used Substance Abuse: Inhalation Substance Frequency: EVERY ONCE IN AWHILE Immunization History Tetanus Immunization: Unsure Exam Narrative Exam Narrative: GENERAL: Well-developed well-nourished agitated female in no acute respiratory distress GCS 15 patient around exam room standing in front of a fan. SKIN: Focused skin assessment warm/dry. HEAD: Atraumatic. Normocephalic. EYES: Pupils equal and round. No scleral icterus. No injection or drainage. ENT: No nasal bleeding or discharge. Mucous membranes pink and moist. NECK: Trachea midline. No JVD. CARDIOVASCULAR: Regular rate and rhythm. No murmur appreciated. RESPIRATORY: No accessory muscle use. Clear to auscultation. Breath sounds equal bilaterally. GASTROINTESTINAL: Abdomen soft, non-tender, nondistended. Hepatic and splenic margins not palpable. MUSCULOSKELETAL: No obvious deformities. No clubbing. No cyanosis. No edema. NEUROLOGICAL: Awake and alert. No obvious cranial nerve deficits. Motor grossly within normal limits. Normal speech. PSYCHIATRIC: Appropriate mood and affect; insight and judgment normal. Course Initial Documented Vital Signs Temperature 101.2 F H 12/25/17 00:10 Pulse Rate 95 H 12/25/17 00:10 Blood Pressure 126/77 12/25/17 00:10 Pulse Oximetry 95 12/25/17 00:10 Last Documented Vital Signs Temperature 98.2 F 12/26/17 08:00 Pulse Rate 63 12/26/17 08:00 Respiratory Rate 16 12/26/17 08:00 Blood Pressure 118/59 L 12/26/17 08:00 Pulse Oximetry 98 12/26/17 08:00 Medical Decision Making MDM Narrative Medical decision making narrative: 52-year-old female presents to the emergency department for complaint of typical migraine headache identified to have fever and is now states that she feels very agitated and cannot get comfortable. Patient placed on cardiac exercise physiologist IV access obtained specimens collected and sent for resulting urine specimen collected and found to be clearly abnormal repeat vital signs with repeat temperature ordered patient given acetaminophen for fever Toradol for myalgias arthralgias and headache along with Compazine and Benadryl regimen for migraine management and IV fluid bolus. Patient identified to have abnormal urinalysis consistent with UTI and administered Rocephin IV discussed with hand button splitter medicine [facility] MD for admission Differential Diagnosis Differential Diagnosis: Fever, sepsis, UTI migraine headache, viral syndrome, sinusitis, respiratory illness also to consider sepsis meningitis Medical Records Medical records reviewed: Yes I reviewed the patient's medical records. POC Test Results POC Urine Results: Negative Lab Data Result diagrams: 12/26/17 06:00 12/26/17 06:00 Lab Results 12/25/17 12/25/17 12/25/17 Range/Units 01:25 03:20 03:20 CBC w Diff Auto diff final WBC 16.8 H (4.0-11.0) th/mm3 RBC 4.02 (4.00-5.30) mil/mm3 Hgb 11.1 L (11.6-15.3) gm/dL Hct 32.2 L (35.0-46.0) % MCV 80.1 (80.0-100.0) fL MCH 27.7 (27.0-34.0) pg MCHC 34.5 (32.0-36.0) % RDW 15.1 (11.6-17.2) % Plt Count 254 (150-450) th/mm3 MPV 9.7 (7.0-11.0) fL Neut % (Auto) 86.1 H (16.0-70.0) % Lymph % (Auto) 5.9 L (9.0-44.0) % Avery % (Auto) 7.1 (0.0-8.0) % Eos % (Auto) 0.1 (0.0-4.0) % Baso % (Auto) 0.8 (0.0-2.0) % Neut # (Auto) 14.5 H (1.8-7.7) th/mm3 Lymph # (Auto) 1.0 (1.0-4.8) th/mm3 Avery # (Auto) 1.2 H (0.0-0.9) th/mm3 Eos # (Auto) 0.0 (0.0-0.4) th/mm3 Baso # (Auto) 0.1 (0.0-0.2) th/mm3 WBC Differential . Differential Comment . Sodium 134 L (136-145) meq/L Potassium 3.4 L (3.5-5.1) meq/L Chloride 101 (98-107) meq/L Carbon Dioxide 22.0 (21.0-32.0) meq/L Anion Gap 11 (5-15) meq/L BUN 12 (7-18) mg/dL Creatinine 0.79 (0.50-1.00) mg/dL Estimated GFR 77 L (>89) mL/min Random Glucose 132 H (74-106) mg/dL Lactic Acid (0.4-2.0) mmol/L Calcium 8.6 (8.5-10.1) mg/dL Total Bilirubin 0.4 (0.2-1.0) mg/dL AST 16 (15-37) U/L ALT 17 (10-53) U/L Alkaline Phosphatase 83 (45-117) U/L Total Protein 7.8 (6.4-8.2) g/dL Albumin 3.8 (3.4-5.0) g/dL Urine Color Yellow (Yellw/Straw) Urine Clarity Cloudy H (Clear) Urine pH 6.5 (5.0-8.5) Ur Specific [place]ima 1.020 (1.002-1.035) Urine Protein Trace (Neg-Trace) mg/dL Urine Glucose (UA) Negative (Negative) mg/dL Urine Ketones 15 H (Negative) mg/dL Urine Occult Blood Small H (Negative) Urine Nitrate Negative (Negative) Urine Bilirubin Negative (Negative) Urine Urobilinogen 1.0 (Less than 2) mg/dL Ur Leukocyte Esterase Moderate H (Negative) Urine RBC 4-15 H (0-3) /hpf Urine WBC 51-189 H (0-5) /hpf Urine WBC Clumps Few H (None) Ur Squamous Epith Cells 0-5 (0-5) /hpf Urine Bacteria Moderate H (None) /hpf Micro UA Comment Culture indicated Urine Culture Comments Culture indicated 12/25/17 12/26/17 12/26/17 Range/Units 03:20 06:00 06:00 CBC w Diff Auto diff final WBC 8.9 (4.0-11.0) th/mm3 RBC 3.31 L (4.00-5.30) mil/mm3 Hgb 8.8 L D (11.6-15.3) gm/dL Hct 27.1 L (35.0-46.0) % MCV 81.9 (80.0-100.0) fL MCH 26.4 L (27.0-34.0) pg MCHC 32.2 (32.0-36.0) % RDW 15.0 (11.6-17.2) % Plt Count 212 (150-450) th/mm3 MPV 9.1 (7.0-11.0) fL Neut % (Auto) 72.4 H (16.0-70.0) % Lymph % (Auto) 13.3 (9.0-44.0) % Avery % (Auto) 13.5 H (0.0-8.0) % Eos % (Auto) 0.5 (0.0-4.0) % Baso % (Auto) 0.3 (0.0-2.0) % Neut # (Auto) 6.5 (1.8-7.7) th/mm3 Lymph # (Auto) 1.2 (1.0-4.8) th/mm3 Avery # (Auto) 1.2 H (0.0-0.9) th/mm3 Eos # (Auto) 0.0 (0.0-0.4) th/mm3 Baso # (Auto) 0.0 (0.0-0.2) th/mm3 WBC Differential . Differential Comment . Sodium 139 (136-145) meq/L Potassium 3.8 (3.5-5.1) meq/L Chloride 108 H (98-107) meq/L Carbon Dioxide 24.5 (21.0-32.0) meq/L Anion Gap 7 (5-15) meq/L BUN 7 (7-18) mg/dL Creatinine 0.52 (0.50-1.00) mg/dL Estimated GFR Greater than 89 (>89) mL/min Random Glucose 109 H (74-106) mg/dL Lactic Acid 1.1 (0.4-2.0) mmol/L Calcium 7.7 L D (8.5-10.1) mg/dL Total Bilirubin 0.2 (0.2-1.0) mg/dL AST 10 L (15-37) U/L ALT 14 (10-53) U/L Alkaline Phosphatase 61 (45-117) U/L Total Protein 6.0 L D (6.4-8.2) g/dL Albumin 2.7 L D (3.4-5.0) g/dL Urine Color (Yellw/Straw) Urine Clarity (Clear) Urine pH (5.0-8.5) Ur Specific Lima (1.002-1.035) Urine Protein (Neg-Trace) mg/dL Urine Glucose (UA) (Negative) mg/dL Urine Ketones (Negative) mg/dL Urine Occult Blood (Negative) Urine Nitrate (Negative) Urine Bilirubin (Negative) Urine Urobilinogen (Less than 2) mg/dL Ur Leukocyte Esterase (Negative) Urine RBC (0-3) /hpf Urine WBC (0-5) /hpf Urine WBC Clumps (None) Ur Squamous Epith Cells (0-5) /hpf Urine Bacteria (None) /hpf Micro UA Comment Urine Culture Comments Imaging Data Radiologist's impression: Chest X-Ray 12/25/17 02:28 CONCLUSION: Negative examination. Discharge Plan Discharge Disposition Patient Disposition: 30 Still Patient Discharge Condition Condition: Stable Discharge Order Discharge Orders: Discharge Order (Routine); Ordered 12/26/17 Ordered By: Brooklynn Simeon Discharge Details Anticipated Discharge Date: 12/26/17 Diagnosis: Sepsis, UTI (urinary tract infection), H/O migraine Physicians Team ED Provider: Cierra Lai Primary Care Provider: Primary Care Margarita Maza Attending Provider: Brooklynn Simeon Status ED Status: Left Department Discharge Information Discharge Date/Time: 12/25/17 05:30
--- NOTE | 2017-12-25 02:52 | XR ---
EXAM DATE: 12/25/2017 2:44 AM EDT AGE/SEX: 52 years / Female INDICATIONS: Fever. CLINICAL DATA: This is the patient's initial encounter. Patient reports that signs and symptoms have been present for 1 day and indicates a pain score of 0/10. MEDICAL/SURGICAL HISTORY: . Fibroid tumors. Appendectomy. section. Gastric bypass. COMPARISON: [facility], CHEST SINGLE AP, 06/01/2015. . FINDINGS: A single AP view of the chest demonstrates the lungs to be symmetrically aerated without evidence of mass, infiltrate or effusion. The cardiomediastinal contours are unremarkable. Osseous structures a re intact. CONCLUSION: Negative examination. Electronically signed by: Neo Lamas MD 12/25/2017 2:51 AM EDT
[2017-12-25 03:37] LABS: Baso # (Auto) 0.1 th/mm3 (0.0-0.2); Baso % (Auto) 0.8 % (0.0-2.0); Eos % (Auto) 0.1 % (0.0-4.0); Hematocrit 32.2 % (35.0-46.0); Hemoglobin 11.1 gm/dL (11.6-15.3); Lymph % (Auto) 5.9 % (9.0-44.0); Mean Corpuscular HGB Conc 34.5 % (32.0-36.0); Mean Corpuscular Hemoglobin 27.7 pg (27.0-34.0); Mean Corpuscular Volume 80.1 fL (80.0-100.0); Mean Platelet Volume 9.7 fL (7.0-11.0); Mono # (Auto) 1.2 th/mm3 (0.0-0.9); Mono % (Auto) 7.1 % (0.0-8.0); Neut # (Auto) 14.5 th/mm3 (1.8-7.7); Neut % (Auto) 86.1 % (16.0-70.0); Platelet Count 254 th/mm3 (150-450); Red Blood Count 4.02 mil/mm3 (4.00-5.30); Red Cell Distribution Width 15.1 % (11.6-17.2); White Blood Count 16.8 th/mm3 (4.0-11.0)
[2017-12-25 03:49] LABS: Chloride 101 meq/L (98-107); Potassium 3.4 meq/L (3.5-5.1); Sodium 134 meq/L (136-145)
[2017-12-25 03:52] LABS: Calcium 8.6 mg/dL (8.5-10.1)
[2017-12-25 03:53] LABS: Albumin 3.8 g/dL (3.4-5.0); Anion Gap 11 meq/L (5-15); Blood Urea Nitrogen 12 mg/dL (7-18); Glucose,Random 132 mg/dL (74-106)
[2017-12-25 03:56] LABS: Alanine Aminotransferase 17 U/L (10-53); Aspartate Aminotransferase 16 U/L (15-37); Glomerular Filtration Rate 77 mL/min (>89)
[2017-12-25 03:58] LABS: Total Protein 7.8 g/dL (6.4-8.2)
[2017-12-25 03:59] LABS: Alkaline Phosphatase 83 U/L (45-117)
[2017-12-25] MEDS ORDERED: Bisacodyl 10 MG Supp RECTAL PRN (04:21)
[2017-12-25] MEDS ORDERED: Temazepam 15 MG Capsule PO PRN (04:21)
[2017-12-25] MEDS: Sod Chloride 0.9% Inj 1,000 ML IV.CONT SCH ×2 (07:47→18:22)
[2017-12-25] MEDS: Senna/Docusate Sodium 8.6/50 MG Tablet PO SCH ×2 (08:00→21:29)
--- NOTE | 2017-12-25 08:31 | P.HPIM ---
History of Present Illness Primary Care Physician: No Primary Care Physician Chief Complaint: Headache History of Present Illness: This patient is a 52-year-old female with history of migraines reports a migraine which was unusual for her. She reports associated fever and chills. She took her Imitrex and Tylenol without great improvement. She tried a nap which usually helps but did not improve so she came to the hospital. Pain was severe without visual disturbance or altered mental status and the patient was also complaining of flushing temperature 101.2. She reports some urinary frequency but reports also being on her menstrual cycle. She notes no previous infections issues and no sick contacts. She does not have any neck pain. He is amatory and able to move all 4 extremities and her flex her neck without difficulty. Patient is found to have urinary tract infections admitted to the hospital for signs of sepsis including leukocytosis and fever. - Diagnosis (1) Sepsis secondary to UTI (2) H/O migraine (3) Hypokalemia Inpatient Certification: I certify that the inpatient services were ordered in accordance with Medicare regulations governing the order. This includes certification that hospital inpatient services are reasonable and necessary and in the case of services not specified as inpatient-only under 42 CFR 419.22(n), that they are appropriately provided as inpatient services in accordance to with the 2-midnight benchmark under 43 CFR 412.3(e) Estimated Total Length of Stay (Days): 2 Plans for Post Hospital Care: Not yet determined Review of Systems All other systems reviewed negative except as stated in HPI Constitutional: Reports chills, Reports headache(s), Reports night sweats Neurologic: Reports headache(s) PMFSH - History History Provided By: Patient - Medical History Medical History: Medical History (Last Reviewed 12/25/17 @ 08:26 by Brooklynn Simeon MD) Migraine Uterine fibroid - Surgical History Surgical History: Surgical History (Last Reviewed 12/25/17 @ 08:26 by Brooklynn Simeon MD) H/O gastric bypass Hx of appendectomy - Family History Family History: Family History (Last Updated 12/25/17 @ 08:27 by Brooklynn Simeon MD) Other No history of heart disease - Tobacco History Second Hand Smoke Exposure: No Tobacco Use In Past 30 Days: No Smoking Status: Former smoker Tobacco Type: Cigarettes - Alcohol History How Often Do You Have a Drink Containing Alcohol: Never - Substance Use History Substance History: Active Abuse - Substance Use Type Marijuana Status: Active Route Used: Inhalation Frequency: Marijuana Reason for Use: Calm Down Comment: Smokes marijuana for pain in right hip. Twice a week. - Travel History Recent Travel Out of the Country Within the Last 8 Weeks: No - Immunization History Tetanus Immunization: Unsure Medications and Allergies Active Medications: Active Medications Acetaminophen (Tylenol) 650 mg PO Q4H PRN PRN Reason: Temp > 100.4 Hydrocodone Bitart/Acetaminophen ([place] 10/325) 1 tab PO Q4H PRN PRN Reason: PAIN 6-10 Hydrocodone Bitart/Acetaminophen ([place] 5/325) 1 tab PO Q4H PRN PRN Reason: PAIN 3-5 Al Hydroxide/Mg Hydroxide (Milk Of Magnesia Liq) 30 ml PO Q12H PRN PRN Reason: Mild Constipation Bisacodyl (Dulcolax Supp) 10 mg RECTAL DAILY PRN PRN Reason: SEVERE CONSITIPATION Diphenhydramine HCl (Benadryl Inj) 50 mg IV.PUSH Q4H PRN PRN Reason: MIGRAINE HEADACHE Ceftriaxone Sodium 1,000 mg/ (Sodium Chloride) 100 mls @ 200 mls/hr IV.SIG Q24H FERNANDO Sodium Chloride (Ns Inj) 1,000 mls @ 100 mls/hr IV.CONT .Q10H [facility] Last Admin: 12/25/17 07:47 Dose: 100 mls/hr Lactulose (Lactulose Liq) 30 ml PO DAILY PRN PRN Reason: SEVERE CONSITIPATION Metoclopramide HCl (Reglan Inj) 5 mg IV.PUSH Q6HR PRN; Protocol PRN Reason: NAUSEA OR VOMITING Prochlorperazine Edisylate (Compazine Inj) 10 mg IV.PUSH Q6H PRN PRN Reason: MIGRAINE HEADACHE Senna/Docusate Sodium (Caroline-Colace) 1 tab PO BID [facility] Last Admin: 12/25/17 08:00 Dose: Not Given Sennosides (Senokot) 17.2 mg PO Q12H PRN PRN Reason: Moderate Constipation Sodium Chloride (Ns Flush) 2 ml IV.FLUSH PRN PRN PRN Reason: FLUSH AFTER USING IV ACCESS Temazepam (Restoril) 15 mg PO HS PRN PRN Reason: INSOMNIA Allergies Allergy/AdvReac Type Severity Reaction Status Date / Time ondansetron AdvReac Mild RESTLESS Verified 12/25/17 00:55 Home Medications Medication Instructions Recorded Confirmed Type Imitrex 100 mg PO ONCE PRN 12/25/17 12/25/17 History acetaminophen [Tylenol] 650 mg PO Q4H PRN 12/25/17 12/25/17 History Exam Vital signs: Vital Signs 12/25/17 00:10 12/25/17 01:02 12/25/17 03:38 Temperature 101.2 F H 102.5 F H Pulse Rate 95 H 96 H 83 Respiratory Rate 20 20 Blood Pressure 126/77 126/77 107/61 Pulse Oximetry 95 95 97 12/25/17 03:42 12/25/17 03:47 12/25/17 04:56 Temperature 99.6 F Pulse Rate 73 Respiratory Rate 18 Blood Pressure 103/61 Pulse Oximetry 99 100 12/25/17 05:15 12/25/17 05:57 12/25/17 06:11 Temperature 98.6 F 97.6 F Pulse Rate 80 66 Respiratory Rate 20 20 Blood Pressure 106/67 132/72 Pulse Oximetry 97 98 12/25/17 07:47 Temperature 97.5 F L Pulse Rate 62 Respiratory Rate 20 Blood Pressure 117/59 L Pulse Oximetry 98 Intake & Output 12/24/17 12/25/17 12/25/17 18:59 06:59 18:59 Intake Total 1400 / 1400 700 / 700 Balance 1400 / 1400 700 / 700 Weight 73.3 kg Intake: IV 1400 / 1400 700 / 700 NS Inj 1,000 ML @ Wide Open IV. 1300 / 1300 700 / 700 SIG BOLUS ONE Rx#:[id number] Rocephin Inj 2,000 MG In NS Inj 100 / 100 100 ML @ 200 mls/hr IV.SIG ONCE ONE Rx#:[id number] Other: Weight On Admission 73.3 kg Narrative: GENERAL: Patient calm resting and without complaints SKIN: Warm and dry. No rashes or ecchymotic injuries EYES: Pupils equal and round. No scleral icterus. No injection or drainage. ENT: External ear exam normal. No acute nasal bleeding or discharge. Mucous membranes pink and moist. CARDIOVASCULAR: Regular rate and rhythm. No murmurs gallops or rubs appreciated RESPIRATORY: Good air flow and effort without accessory muscle use. Clear to auscultation. Breath sounds equal bilaterally. GASTROINTESTINAL: Abdomen soft, non-tender, nondistended. Hepatic and splenic margins not palpable. MUSCULOSKELETAL: Extremities without clubbing, cyanosis, or edema. No obvious deformities. NEUROLOGICAL: Awake and alert. No obvious cranial nerve deficits. Motor grossly within normal limits. Five out of 5 muscle strength in the arms and legs. Normal speech. Results - Labs CBC & Chem 7: 12/25/17 03:20 12/25/17 03:20 Labs: Short CBC 12/25/17 Range/Units 03:20 WBC 16.8 H (4.0-11.0) th/mm3 Hgb 11.1 L (11.6-15.3) gm/dL Hct 32.2 L (35.0-46.0) % Plt Count 254 (150-450) th/mm3 BMP 12/25/17 03:20 Sodium 134 L Potassium 3.4 L Chloride 101 Carbon Dioxide 22.0 BUN 12 Creatinine 0.79 Calcium 8.6 Liver Function 12/25/17 Range/Units 03:20 Total Bilirubin 0.4 (0.2-1.0) mg/dL AST 16 (15-37) U/L ALT 17 (10-53) U/L Alkaline Phosphatase 83 (45-117) U/L Albumin 3.8 (3.4-5.0) g/dL Urine 12/25/17 Range/Units 01:25 Urine Color Yellow (Yellw/Straw) Urine Clarity Cloudy H (Clear) Urine pH 6.5 (5.0-8.5) Ur Specific [place] 1.020 (1.002-1.035) Urine Protein Trace (Neg-Trace) mg/dL Urine Glucose (UA) Negative (Negative) mg/dL - Imaging Impressions Chest X-Ray 12/25/17 02:28 CONCLUSION: Negative examination. Caprini VTE Risk Assessment Caprini VTE Risk Assessment: No/Low Risk (score <= 1) Caprini Risk Assessment Model: Point Value = 1 Point Value = 2 Point Value = 3 Point Value = 5 Age 41-60 Minor surgery BMI > 25 kg/m2 Swollen legs Varicose veins or History of unexplained or recurrent spontaneous Oral contraceptives or hormone replacement Sepsis (< 1 month) Serious lung disease, including pneumonia (< 1 month) Abnormal pulmonary function Acute myocardial infarction Congestive heart failure (< 1 month) History of inflammatory bowel disease Medical patient at bed rest Age 61-74 Arthroscopic surgery Major open surgery (> 45 min) Laparoscopic surgery (> 45 min) Malignancy Confined to bed (> 72 hours) Immobilizing plaster cast Central venous access Age >= 75 History of VTE Family history of VTE Factor V Leiden Prothrombin [id number] Lupus anticoagulant Anticardiolipin antibodies Elevated serum homocysteine Heparin-induced thrombocytopenia Other congenital or acquired thrombophilia Stroke (< 1 month) Elective arthroplasty Hip, pelvis, or leg fracture Acute spinal cord injury (< 1 month) Prophylaxis Regimen: Total Risk Factor Score Risk Level Prophylaxis Regimen 0-1 Low Early ambulation 2 Moderate Order ONE of the following: *Sequential Compression Device (SCD) *Heparin 5000 units SQ BID 3-4 Higher Order ONE of the following medications: *Heparin 5000 units SQ TID *Enoxaparin/Lovenox 40 mg SQ daily (WT < 150 kg, CrCl > 30 mL/min) *Enoxaparin/Lovenox 30 mg SQ daily (WT < 150 kg, CrCl > 10-29 mL/min) *Enoxaparin/Lovenox 30 mg SQ BID (WT < 150 kg, CrCl > 30 mL/min) AND/OR *Sequential Compression Device (SCD) 5 or more Highest Order ONE of the following medications: *Heparin 5000 units SQ TID (Preferred with Epidurals) *Enoxaparin/Lovenox 40 mg SQ daily (WT < 150 kg, CrCl > 30 mL/min) *Enoxaparin/Lovenox 30 mg SQ daily (WT < 150 kg, CrCl > 10-29 mL/min) *Enoxaparin/Lovenox 30 mg SQ BID (WT < 150 kg, CrCl > 30 mL/min) AND *Sequential Compression Device (SCD) Assessment and Plan - Assessment (1) Sepsis secondary to UTI Code(s): A41.9 - Sepsis, unspecified organism; N39.0 - Urinary tract infection, site not specified Status: Acute Plan: Continue Rocephin, follow-up cultures Repeat CBC in a.m. Temperature has improved (2) H/O migraine Code(s): Z86.69 - Personal history of other diseases of the nervous system and sense organs Status: Acute Plan: Imitrex as needed (3) Hypokalemia Code(s): E87.6 - Hypokalemia Status: Acute - Plan replace and follow trend H&P: Quality - VTE Deep Vein Thrombosis/Pulmonary Embolism Present on Admission: No
[2017-12-25] MEDS: Acetaminophen 325 MG Tablet PO PRN ×2 (11:16→20:24)
[2017-12-25] MEDS ORDERED: ALPRAZolam 0.5 MG Tablet PO ONE (14:21)
[2017-12-26] MEDS: Sod Chloride 0.9% Inj 1,000 ML IV.CONT SCH (02:31)
[2017-12-26 06:23] LABS: Baso % (Auto) 0.3 % (0.0-2.0); Eos % (Auto) 0.5 % (0.0-4.0); Hematocrit 27.1 % (35.0-46.0); Hemoglobin 8.8 gm/dL (11.6-15.3); Lymph # (Auto) 1.2 th/mm3 (1.0-4.8); Lymph % (Auto) 13.3 % (9.0-44.0); Mean Corpuscular HGB Conc 32.2 % (32.0-36.0); Mean Corpuscular Hemoglobin 26.4 pg (27.0-34.0); Mean Corpuscular Volume 81.9 fL (80.0-100.0); Mean Platelet Volume 9.1 fL (7.0-11.0); Mono # (Auto) 1.2 th/mm3 (0.0-0.9); Mono % (Auto) 13.5 % (0.0-8.0); Neut # (Auto) 6.5 th/mm3 (1.8-7.7); Neut % (Auto) 72.4 % (16.0-70.0); Platelet Count 212 th/mm3 (150-450); Red Blood Count 3.31 mil/mm3 (4.00-5.30); White Blood Count 8.9 th/mm3 (4.0-11.0)
[2017-12-26 06:33] LABS: Chloride 108 meq/L (98-107); Potassium 3.8 meq/L (3.5-5.1); Sodium 139 meq/L (136-145)
[2017-12-26 06:45] LABS: Alanine Aminotransferase 14 U/L (10-53); Albumin 2.7 g/dL (3.4-5.0); Alkaline Phosphatase 61 U/L (45-117); Anion Gap 7 meq/L (5-15); Aspartate Aminotransferase 10 U/L (15-37); Blood Urea Nitrogen 7 mg/dL (7-18); Calcium 7.7 mg/dL (8.5-10.1); Carbon Dioxide 24.5 meq/L (21.0-32.0); Glomerular Filtration Rate Greater Than 89 mL/min (>89); Glucose,Random 109 mg/dL (74-106)
[2017-12-26] MEDS: Senna/Docusate Sodium 8.6/50 MG Tablet PO SCH (08:46)
--- NOTE | 2017-12-26 10:48 | P.PNIM ---
Subjective Interval history: Patient doing well today. No further fevers. Discharge plan discussed with patient and nursing team. Headache is resolved Physical Exam Vital signs: Vital Signs 12/25/17 11:15 12/25/17 16:05 12/25/17 20:00 Temperature 98.6 F 98.4 F 101.4 F H Pulse Rate 69 72 97 H Respiratory Rate 20 20 16 Blood Pressure 137/69 134/64 122/60 Pulse Oximetry 98 98 95 12/26/17 00:00 12/26/17 01:29 12/26/17 08:00 Temperature 99.1 F 98.2 F Pulse Rate 75 63 Respiratory Rate 16 10 L 16 Blood Pressure 118/67 118/59 L Pulse Oximetry 95 98 Intake & Output 12/25/17 12/26/17 12/26/17 18:59 06:59 18:59 Intake Total 2420 / 2420 1100 / 1100 Balance 2420 / 2420 1100 / 1100 Weight 73.1 kg Intake: IV 1700 / 1700 1100 / 1100 NS Inj 1,000 ML @ 100 mls/hr IV 1000 / 1000 1000 / 1000 .CONT .Q10H FERNANDO Rx#:[id number] NS Inj 1,000 ML @ Wide Open IV. 700 / 700 SIG BOLUS ONE Rx#:[id number] Rocephin Inj 1,000 MG In NS Inj 100 / 100 100 ML @ 200 mls/hr IV.SIG Q24H FERNANDO Rx#:[id number] Oral 720 / 720 Other: # Voids 4 Date of Last Bowel Movement 12/26/17 Narrative: GENERAL: Patient calm resting and without complaints SKIN: Warm and dry. No rashes or ecchymotic injuries EYES: Pupils equal and round. No scleral icterus. No injection or drainage. ENT: External ear exam normal. No acute nasal bleeding or discharge. Mucous membranes pink and moist. CARDIOVASCULAR: Regular rate and rhythm. No murmurs gallops or rubs appreciated RESPIRATORY: Good air flow and effort without accessory muscle use. Clear to auscultation. Breath sounds equal bilaterally. GASTROINTESTINAL: Abdomen soft, non-tender, nondistended. Hepatic and splenic margins not palpable. MUSCULOSKELETAL: Extremities without clubbing, cyanosis, or edema. No obvious deformities. NEUROLOGICAL: Awake and alert. No obvious cranial nerve deficits. Motor grossly within normal limits. Five out of 5 muscle strength in the arms and legs. Normal speech. Results - Labs CBC & Chem 7: 12/26/17 06:00 12/26/17 06:00 Laboratory Results - last 24 hr 12/26/17 12/26/17 06:00 06:00 CBC w Diff Auto diff final WBC 8.9 RBC 3.31 L Hgb 8.8 L D Hct 27.1 L MCV 81.9 MCH 26.4 L MCHC 32.2 RDW 15.0 Plt Count 212 MPV 9.1 Neut % (Auto) 72.4 H Lymph % (Auto) 13.3 [place] % (Auto) 13.5 H Eos % (Auto) 0.5 Baso % (Auto) 0.3 Neut # (Auto) 6.5 Lymph # (Auto) 1.2 [place] # (Auto) 1.2 H Eos # (Auto) 0.0 Baso # (Auto) 0.0 WBC Differential . Differential Comment . Sodium 139 Potassium 3.8 Chloride 108 H Carbon Dioxide 24.5 Anion Gap 7 BUN 7 Creatinine 0.52 Estimated GFR Greater than 89 Random Glucose 109 H Calcium 7.7 L D Total Bilirubin 0.2 AST 10 L ALT 14 Alkaline Phosphatase 61 Total Protein 6.0 L D Albumin 2.7 L D - Imaging Impressions Chest X-Ray 12/25/17 02:28 CONCLUSION: Negative examination. Assessment and Plan - Assessment (1) Sepsis secondary to UTI Code(s): A41.9 - Sepsis, unspecified organism; N39.0 - Urinary tract infection, site not specified Status: Acute Plan: Sepsis resolved (2) H/O migraine Code(s): Z86.69 - Personal history of other diseases of the nervous system and sense organs Status: Acute Plan: Imitrex as needed (3) Hypokalemia Code(s): E87.6 - Hypokalemia Status: Acute - Plan Resolved Discharge Planning: Discharge home Activity unrestricted Diet regular
== END 2017-12-26 12:17 | disposition home or self-care (01) ==
LOC: PHED 00:06 → PHEDA 04:25 → PH3 05:25
PROVIDERS: ADMIT Hospitalist; ATTEND Hospitalist
DX: G43.909 Migraine, unspecified, not intractable, without status migrainosus; Z98.84 Bariatric surgery status; A41.51 Sepsis due to Escherichia coli [E. coli]; F12.90 Cannabis use, unspecified, uncomplicated; Z87.891 Personal history of nicotine dependence; N39.0 Urinary tract infection, site not specified; E87.6 Hypokalemia